=== PATIENT | female | born 1995 | race Two or more races ===

== ENCOUNTER 2017-08-02 17:22 | Emergency (ER) | payer SELFPAY ==
[~2017-08-02] VITALS: Ht 157.5 cm; Wt 87.0 kg
[2017-08-02 17:40] VITALS: BP 111/60
== END 2017-08-03 01:00 | disposition left against medical advice (07) ==
LOC: ER 17:22
DX: Z53.21 Procedure and treatment not carried out due to patient leaving prior to being seen by health care provider (principal)